=== PATIENT | female | born 1965 | race Caucasian/White ===

== ENCOUNTER 2018-06-19 20:02 | Outpatient (REF) | payer BC, SELFPAY ==
[2018-06-19 20:34] LABS: ALT 117 U/L (12-78); AST 69 U/L (15-37); Albumin 3.8 g/dL (3.4-5.0); Alkaline Phosphatase 87 U/L (46-116); Anion Gap 7.4 mmol/L (3-11); BUN 14 mg/dL (7-18); Bilirubin, Total 0.3 mg/dL (0.2-1.0); CO2 30.6 mmol/L (21.0-32.0); CREATININE 0.88 mg/dL (0.55-1.02); Calcium 9.8 mg/dL (8.5-10.1); Chloride 103 mmol/L (98-107); Cholesterol 232 mg/dL (50-200); Glucose 111 mg/dL (70-100); HDL Cholesterol 46 mg/dL (40-60); LDL CHOLESTEROL 152 mg/dL (<100); Potassium 3.9 mmol/L (3.5-5.1); Sodium 141 mmol/L (136-145); Total Protein 7.8 g/dL (6.4-8.2); Triglyceride 231 mg/dL (30-150)
== END 2018-06-19 20:22 ==
LOC: NCHCN 20:02
PROVIDERS: PCP Internal Medicine; Visit Provider Nurse Practitioner Family
DX: N95.1 Menopausal and female climacteric states (principal); N39.3 Stress incontinence (female) (male); J45.20 Mild intermittent asthma, uncomplicated; I10 Essential (primary) hypertension; R68.84 Jaw pain; K30 Functional dyspepsia
CPT/HCPCS: 80053; 80061; 83721

== ENCOUNTER 2018-08-13 10:15 | Outpatient (REF) | payer BC, SELFPAY ==
[2018-08-13 14:15] LABS: ALT 70 U/L (12-78); AST 44 U/L (15-37); Albumin 4.2 g/dL (3.4-5.0); Alkaline Phosphatase 94 U/L (46-116); Bilirubin, Direct 0.14 mg/dL (0.00-0.20); Bilirubin, Total 0.6 mg/dL (0.2-1.0); Glucose 101 mg/dL (70-100); Total Protein 7.9 g/dL (6.4-8.2)
[2018-08-14 09:56] LABS: Hepatitis A Antibody IgM Negative (NEGAT); Hepatitis B Core Antibody Negative (NEGAT); Hepatitis B surface Ag Negative (NEGAT); Hepatitis C Ab w Rflx HCV PCR Negative (NEGAT)
== END 2018-08-13 10:35 ==
LOC: NCHCN 10:15
PROVIDERS: PCP Internal Medicine; Referring Provider Nurse Practitioner Family; Visit Provider Nurse Practitioner Family
DX: I10 Essential (primary) hypertension (principal); E66.3 Overweight; Z00.00 Encounter for general adult medical examination without abnormal findings
CPT/HCPCS: 80076; 82947; 86704; 86709; 86803; 87340

== ENCOUNTER 2018-12-11 11:22 | Outpatient (REF) | payer BC, SELFPAY ==
[2018-12-11 21:03] LABS: ALT 72 U/L (12-78); AST 54 U/L (15-37); Albumin 4.1 g/dL (3.4-5.0); Alkaline Phosphatase 96 U/L (46-116); Anion Gap 12.4 mmol/L (3-11); BUN 16 mg/dL (7-18); Bilirubin, Total 0.5 mg/dL (0.2-1.0); CO2 25.6 mmol/L (21.0-32.0); CREATININE 0.77 mg/dL (0.55-1.02); Calcium 9.3 mg/dL (8.5-10.1); Chloride 101 mmol/L (98-107); Glucose 106 mg/dL (70-100); Potassium 4.1 mmol/L (3.5-5.1); Sodium 139 mmol/L (136-145)
== END 2018-12-11 11:42 ==
LOC: NCHCN 11:22
PROVIDERS: PCP Internal Medicine; Visit Provider Nurse Practitioner Family
DX: R74.0 Nonspecific elevation of levels of transaminase and lactic acid dehydrogenase [LDH] (principal); N95.1 Menopausal and female climacteric states; N39.3 Stress incontinence (female) (male); K30 Functional dyspepsia; I10 Essential (primary) hypertension; F41.9 Anxiety disorder, unspecified; E66.3 Overweight
CPT/HCPCS: 80053

== ENCOUNTER 2019-03-27 08:55 | Outpatient (REF) | payer BC, SELFPAY ==
[2019-03-27 12:51] LABS: ALT 27 U/L (14-59); AST 16 U/L (15-37); Albumin 4.1 g/dL (3.4-5.0); Alkaline Phosphatase 102 U/L (46-116); Bilirubin, Direct 0.11 mg/dL (0.00-0.20); Bilirubin, Total 0.5 mg/dL (0.2-1.0); Total Protein 7.7 g/dL (6.4-8.2)
== END 2019-03-27 09:15 ==
LOC: NCHCN 08:55
PROVIDERS: PCP Internal Medicine; Visit Provider Nurse Practitioner Family
DX: R74.0 Nonspecific elevation of levels of transaminase and lactic acid dehydrogenase [LDH] (principal)
CPT/HCPCS: 80076

== ENCOUNTER 2020-11-20 12:30 | Outpatient (REF) | payer BC, SELFPAY ==
--- NOTE | 2020-11-20 11:30 | PAPFT_PTH ---
PATIENT: Letitia Lee LOC: [facility]#:[id number] AGE/SX: 55/F ROOM: RE11/20/[address]: Mely Toure : 1965 BED: DIS: 11/20/2020 SPEC #: [id number] RECD: 11/20/20 16:38 STATUS: ZIAJennifer REMatthew #: [id number] AYAN: 11/20/20 11:[address]: Mely Toure DEPT: [facility] Cytology RECD BY: Paige Carlson ENTERED: 11/20/20 16:38 SP TYPE: PAPFT ERICK DR: Quinton Carl Tissues: 1 - CX/ENDOCX FOR PAP SMEARS Procedures: PAP THIN PREP/UVM Screening HPV DNA PROBE Comments: [id number]
[2020-11-20 21:12] LABS: ALT 31 U/L (14-59); AST 21 U/L (15-37); Albumin 4.4 g/dL (3.4-5.0); Alkaline Phosphatase 92 U/L (46-116); Bilirubin, Total 0.2 mg/dL (0.2-1.0); Calculated LDL 131 mg/dL (<100); Cholesterol 201 mg/dL (<200); HDL Cholesterol 39 mg/dL (40-60); Total Protein 7.9 g/dL (6.4-8.2); Triglyceride 155 mg/dL (<150)
[2020-11-20 21:25] LABS: Bilirubin, Direct 0.1 mg/dL (0.0-0.2)
== END 2020-11-20 12:31 | disposition home or self-care (01) ==
LOC: NCHCN 12:30
PROVIDERS: PCP Internal Medicine; Visit Provider Nurse Practitioner Family
DX: E78.5 Hyperlipidemia, unspecified (principal); Z00.00 Encounter for general adult medical examination without abnormal findings; R74.01 Elevation of levels of liver transaminase levels; E66.3 Overweight; Z12.4 Encounter for screening for malignant neoplasm of cervix; Z01.419 Encounter for gynecological examination (general) (routine) without abnormal findings; Z11.51 Encounter for screening for human papillomavirus (HPV)
CPT/HCPCS: 80061; 80076; 88142; 87624

== ENCOUNTER 2021-03-24 20:32 | Outpatient (REF) | payer BC, SELFPAY ==
[2021-03-24 21:22] LABS: Abs Immature Grans 0.01 10^3/uL (0.0-0.06); Absolute Basophil Count 0.02 10^3/uL (0.0-0.2); Absolute Eosinophil Count 0.05 10^3/uL (0.0-0.7); Absolute Lymphocyte Count 1.73 10^3/uL (1.2-3.4); Absolute Monocyte Count 0.57 10^3/uL (0.1-0.8); Absolute Neutrophil Count 3.25 10^3/uL (1.2-6.7); Basophils % 0.4; Eosinophils % 0.9; HCT 41.5 % (36.0-46.0); HGB 13.6 g/dL (11.2-15.7); Immature Grans % 0.2; Lymphocytes % 30.7; MCH 29.9 pg (27.0-33.0); MCHC 32.8 % (32.0-36.0); MCV 91.2 fL (80-95); MPV 11.2 fL (8.0-11.0); Monocytes % 10.1; Neutrophils % 57.7; Nucleated RBC 0 %; Platelet Count 282 10^3/uL (130-400); RBC 4.55 10^6/uL (3.93-5.22); RDW 12.9 % (11.7-14.6); RDW-SD 43.5 fL; WBC 5.63 10^3/uL (4.4-10.8)
[2021-03-24 21:24] LABS: ESR 18 mm/hr (0-30)
[2021-03-24 21:27] LABS: ALT 30 U/L (14-59); AST 18 U/L (15-37); Albumin 4.4 g/dL (3.4-5.0); Alkaline Phosphatase 84 U/L (46-116); Anion Gap 8.9 mmol/L (3-11); BUN 17 mg/dL (7-18); Bilirubin, Total 0.2 mg/dL (0.2-1.0); CO2 30.1 mmol/L (21.0-32.0); CREATININE 0.8 mg/dL (0.55-1.02); Calcium 9.3 mg/dL (8.5-10.1); Chloride 103 mmol/L (98-107); Glucose 106 mg/dL (74-106); Potassium 3.9 mmol/L (3.5-5.1); Sodium 142 mmol/L (136-145); Total Protein 7.8 g/dL (6.4-8.2)
[2021-03-29 10:58] LABS: IgA 244 mg/dL (85-499); Interpretation (See Note); Tissue Transglutaminase IgA <1.2 U/mL (<4.0)
== END 2021-03-24 20:33 | disposition home or self-care (01) ==
LOC: NCHCN 20:32
PROVIDERS: PCP Internal Medicine; Visit Provider Family Medicine
DX: K30 Functional dyspepsia (principal)
CPT/HCPCS: 80053; 82784; 83516; 85652; 85025

== ENCOUNTER 2021-10-15 14:01 | Outpatient (CLI) | payer BC, SELFPAY ==
[2021-10-15 15:12] LABS: D-Dimer 313 ng/mlFEU (<500)
== END 2021-10-15 14:02 | disposition home or self-care (01) ==
LOC: LBO 14:02
PROVIDERS: PCP Internal Medicine; Visit Provider Nurse Practitioner Family
DX: R60.0 Localized edema (principal)
CPT/HCPCS: 36415; 85379

== ENCOUNTER 2021-10-29 15:38 | Outpatient (REF) | payer BC, SELFPAY ==
[2021-10-29 16:18] LABS: Anion Gap 7.1 mmol/L (3-11); BUN 13 mg/dL (7-18); CO2 29.9 mmol/L (21.0-32.0); CREATININE 0.8 mg/dL (0.55-1.02); Calcium 9.4 mg/dL (8.5-10.1); Chloride 101 mmol/L (98-107); Glucose 109 mg/dL (74-106); Potassium 4.1 mmol/L (3.5-5.1); Sodium 138 mmol/L (136-145)
== END 2021-10-29 15:39 | disposition home or self-care (01) ==
LOC: NCHCN 15:38
PROVIDERS: PCP Internal Medicine; Visit Provider Nurse Practitioner Family
DX: E78.5 Hyperlipidemia, unspecified (principal); E66.3 Overweight; Z86.79 Personal history of other diseases of the circulatory system
CPT/HCPCS: 80048

== ENCOUNTER 2022-02-01 15:56 | Outpatient (REF) | payer BC, SELFPAY ==
[2022-02-01 19:30] LABS: Abs Immature Grans 0.02 10^3/uL (0.0-0.06); Absolute Basophil Count 0.02 10^3/uL (0.0-0.2); Absolute Eosinophil Count 0.02 10^3/uL (0.0-0.7); Absolute Lymphocyte Count 1.51 10^3/uL (1.2-3.4); Absolute Monocyte Count 0.36 10^3/uL (0.1-0.8); Absolute Neutrophil Count 4.58 10^3/uL (1.2-6.7); Basophils % 0.3; Eosinophils % 0.3; HCT 43.1 % (36.0-46.0); HGB 14.5 g/dL (11.2-15.7); Immature Grans % 0.3; Lymphocytes % 23.2; MCH 29.8 pg (27.0-33.0); MCHC 33.6 % (32.0-36.0); MCV 89 fL (80-95); MPV 11.2 fL (8.0-11.0); Monocytes % 5.5; Neutrophils % 70.4; Platelet Count 306 10^3/uL (130-400); RBC 4.87 10^6/uL (3.93-5.22); RDW-SD 42.5 fL; WBC 6.51 10^3/uL (4.4-10.8)
[2022-02-01 20:06] LABS: Ferritin 311 ng/mL (8-252); TSH (W/Ref FT4) 0.86 uIU/mL (0.36-3.74); Vitamin B12 521 pg/mL (193-986)
[2022-02-01 21:29] LABS: Iron 65 ug/dL (50-170); Total Iron Binding Capacity 346 ug/dL (250-450); Transferrin Sat 19 % (15-50)
== END 2022-02-01 15:57 | disposition home or self-care (01) ==
LOC: NCHCN 15:56
PROVIDERS: PCP Internal Medicine; Visit Provider Nurse Practitioner Family
DX: Z00.00 Encounter for general adult medical examination without abnormal findings (principal); R53.83 Other fatigue; K30 Functional dyspepsia; E66.3 Overweight; E78.5 Hyperlipidemia, unspecified
CPT/HCPCS: 82607; 82728; 83540; 83550; 84443; 85025

== ENCOUNTER 2022-12-01 17:27 | Outpatient (REF) | payer BC, SELFPAY ==
[2022-12-01 14:58] LABS: Hemoglobin A1C 5.6 % (<5.7)
[2022-12-01 15:12] LABS: ALT 29 U/L (14-59); AST 18 U/L (15-37); Albumin 4.1 g/dL (3.4-5.0); Alkaline Phosphatase 93 U/L (46-116); BUN 12 mg/dL (7-18); Bilirubin, Total 0.6 mg/dL (0.2-1.0); CREATININE 0.8 mg/dL (0.55-1.02); Calcium 9.1 mg/dL (8.5-10.1); Calculated LDL 151 mg/dL (<100); Chloride 105 mmol/L (98-107); Cholesterol 211 mg/dL (<200); Estimated GFR 86.96 (mL/min/1.73m2); Ferritin 373 ng/mL (8-252); Glucose 96 mg/dL (74-106); HDL Cholesterol 45 mg/dL (40-60); Potassium 4.3 mmol/L (3.5-5.1); Sodium 141 mmol/L (136-145); Total Protein 7.5 g/dL (6.4-8.2); Triglyceride 78 mg/dL (<150)
== END 2022-12-01 17:28 | disposition home or self-care (01) ==
LOC: NCHCN 17:27
PROVIDERS: PCP Internal Medicine; Visit Provider Nurse Practitioner Family
DX: R78.89 Finding of other specified substances, not normally found in blood (principal); E78.5 Hyperlipidemia, unspecified; E66.3 Overweight
CPT/HCPCS: 80053; 80061; 82728; 83036

== ENCOUNTER 2023-12-04 11:23 | Outpatient (REF) | payer BC, SELFPAY ==
--- OUTSIDE RECORDS SUMMARY | 2023-12-04 11:30 | XMS_ITS | Clinical Summary ---
Author Organization [facility] Address [address] [place] [address] Care Team Providers Care Cutter And Paster Press Clippings Name Role Phone Unknown, Provider Primary Care Provider Social History Tobacco Use Types Packs/Day Years Used Date Smoking Tobacco: Never Assessed Sex and Gender Information Value Date Recorded Sex Assigned at Not on file Gender Identity Not on file Sexual Orientation Not on file Plan of Treatment Health Maintenance Due Date Last Done Comments Hepatitis C Screen 1965 Hepatitis B Vaccine (1 of 3 - 19+ 3-dose series) 05/20 COVID-19 Vaccine (2022- season) 2022 Care Teams Cutter And Paster Press Clippings Relationship Specialty Start Date End Date Unknown, Provider, PCP - General 03/24/15
--- OUTSIDE RECORDS SUMMARY | 2023-12-04 11:30 | XMS_ITS | Clinical Summary ---
Author Organization [facility] Address [facility] [place] [address] Care Team Providers Care Special Investigator Name Role Phone Mely Touer APRN Primary Care Provider +1 [phone] Allergies No known active allergies Medications Medication Sig Dispensed Refills Start Date End Date Status escitalopram (LEXAPRO) 10 mg tablet 10mg, PO, Once daily 07/07/2004 Active propranoloL (Inderal) 10 mg Tablet Take 10 mg by mouth 2 times daily. 03/29/2022 Active venlafaxine XR (Effexor-XR) 37.5 mg Capsule, Sust. Release 24 hr Take 37.5 mg by mouth daily. 03/18/2022 Active Social History Tobacco Use Types Packs/Day Years Used Date Smoking Tobacco: Never Smokeless Tobacco: Never Tobacco Cessation:Counseling Given: Not Answered Sex and Gender Information Value Date Recorded Sex Assigned at Not on file Gender Identity Not on file Sexual Orientation Not on file Plan of Treatment Health Maintenance Due Date Last Done Comments CT Colonography 1965 Colonoscopy 1965 Colorectal Cancer Screening 1965 FIT DNA 1965 FIT 1965 Sigmoidoscopy (10 year) with FIT yearly 1965 Sigmoidoscopy 1965 HIV screen 1985 Hepatitis C Screening 1985 Hepatitis B vaccine (0-59 yrs) (1) 1986 Tdap adult 1986 Tetanus vaccine 1986 HPV test 1997 PAP Smear 1997 Breast Cancer Share Decision Needed 2007 Breast Cancer screening 2007 Zoster vaccine (1 of 2) 2017 Advance Directive 2022 Covid-19 Vaccine () 12/30/2022 Influenza (Flu) vaccine (1 o f 1 - Influenza standard series) 12/31/2023 Care Teams Special Investigator Relationship Specialty Start Date End Date Mely Toure APRN [address] [place] [address] PCP - General Family Medicine 05/17/21
--- OUTSIDE RECORDS SUMMARY | 2023-12-04 11:30 | XMS_ITS | Continuity of Care Document ---
Author Organization [facility] Address [address] [place] [address] Care Team Providers Care Bill Board Poster Name Role Phone MARYANN ENRIQUEZ APRN Primary Care Physician Encounter [facility]_[place] FIN NBR [id number] Date(s): 02/15/23 - 02/15/23 [facility] [address] [place] [address]- Encounter Diagnosis Palpitations(Final) - Other forms of dyspnea(Final) - Other specified abnormal findings of blood chemistry(Final) - Menopausal and female climacteric states(Final) - Discharge Disposition: Home or Self Care Attending Physician: MARYANN ENRIQUEZ APRN Admitting Physician: MARYANN ENRIQUEZ APRN Referring Physician: MARYANN ENRIQUEZ APRN Assessment and Plan Future Appointments Future Scheduled Tests Radiology* MG Mammo Screening Bilateral 03/20/23 Results Laboratory List Name Date Basic Metabolic Panel 02/15/23 D-Dimer 02/15/23 Ferritin 02/15/23 Magnesium Level 02/15/23 TSH w/ Rflx to Free T4 02/15/23 Most recent to oldest [Reference Range]: 1 BUN [8-26 mg/dL] 15 mg/dL (02/15/23 8:57 AM) Glucose Level [74-106 mg/dL] 68 mg/dL *LOW* (02/15/23 8:57 AM) Potassium Level [3.5-5.1 mmol/L] 4.3 mmo l/L (02/15/23 8:57 AM) Osmolality [275-295 mOsm/kg] 275 mOsm/kg (02/15/23 8:57 AM) Sodium Level [134-143 mmol/L] 138 mmol/L (02/15/23 8:57 AM) Calcium Level [8.9-10.3 mg/dL] 9.8 mg/dL (02/15/23 8:57 AM) Magnesium Level [1.8-2.5 mg/dL] 2.4 mg/d L (02/15/23 8:57 AM) Ferritin Level [11.0-307.0 ng/mL] 228.8 ng/mL (02/15/23 8:57 AM) CO2 [22-32 mmol/L] 28 mmol/L (02/15/23 8:57 AM) TSH [0.45-5.33 mcIntlUnit/mL] 0.90 mcInt lUnit/mL (02/15/23 8:57 AM) Chloride Level [98-111 mmol/L] 103 mmol/ L (02/15/23 8:57 AM) BUN/Creat Ratio [8.0-20.0] 22.7 *HI* (02/15/23 8:57 AM) Creatinine Level [0.44-1.00 mg/dL] 0.66 mg/dL (02/15/23 8:57 AM) Anion Gap [3.0-12.0] 7.0 (02/15/23 8:57 AM) D Dimer, (Quant.) [<=500 ng/mL] 229 ng/m L 1 (02/15/23 8:57 AM) eGFR CKD-EPI [>=60 mL/min/1.73 m2] 104 m L/min/1.73 m2 (02/15/23 8:57 AM) 1Interpretive Data: A normal D-dimer result (< or =500 ng/mL FEU) has a negative predicitive value of approximately 95% for the exclusion of acute embolism (PE) or deep vein thrombosis when there is low or moderate pretest PE probability. Patient Care team information Care Team Personnel Name: MARYANN ENRIQUEZ APRN Position: No Access Member Role: Primary Care Physician Address: Address: [address] [place] [id number] Care Team Related Persons Name: EMERALD OKEEFE Address: Home [address] [place] [id number] [facility]
--- OUTSIDE RECORDS SUMMARY | 2023-12-04 11:30 | XMS_ITS | Encounter Summary ---
Author Organization [facility] [place] [address] Care Team Providers Care Pilot Can Router Name Role Phone Mely Toure APRN Primary Care Provider [phone] [phone] Reason for Referral * Consultation (Routine) - Closed Specialty Diagnoses / Procedures Referred By Cornelio rogers Referred To Contact Dermatology Diagnoses Skin lesion of face Mely Toure APRN [address] [place] [address] [facility] Dermatology [address] [place] [address] Referral ID Status Reason Start Date Expiration Date V isits Requested Visits Authorized [id number] Closed Consult, Test & Treat PCP Updated and/or Approved 03/21/2022 03/21/2023 12 12 Encounter Details Date Type Department Care Team (Latest Contact Info) Description 03/21/2022 Transcribe Orders eDH Incoming Referrals [phone] Mely Toure APRN [address] [place] [address] Skin lesion of face Social History Tobacco Use Types Packs/Day Years Used Date Smoking Tobacco: Never Assessed Sex and Gender Information Value Date Recorded Sex Assigned at Not on file Gender Identity Not on file Sexual Orientation Not on file documented as of this encounter Plan of Treatment Scheduled Referrals Name Type Priority Associated Diagnoses Order Schedule Referral to Dermatology Outpatient Referral Routine Skin lesion of face Ordered: 03/21/2022 documented as of this encounter Visit Diagnoses Diagnosis Skin lesion of face Unspecified disorder of skin and subcutaneous tissue documented in this encounter Care Teams Pilot Can Router Relationship Specialty Start Date End Date Mely Toure APRN [address] [place] [address] PCP - General Family Medicine 05/17/21 documented as of this encounter
--- OUTSIDE RECORDS SUMMARY | 2023-12-04 11:30 | XMS_ITS | Continuity of Care Document ---
Author Organization [facility] Address [address] [place] [address] Care Team Providers Care Traffic Supervisor Name Role Phone MARYANN ENRIQUEZ APRN Primary Care Physician [place]counter [facility] FIN NBR [id number] Date(s): 03/20/23 - 03/20/23 [facility] [address] [place] [address]- [place] Encounter Diagnosis Encounter for screening mammogram for malignant neoplasm of breast(Final) - Discharge Disposition: Home or Self Care Attending Physician: MARYANN ENRIQUEZ APRN Admitting Physician: MARYANN ENRIQUEZ APRN Referring Physician: MARYANN ENRIQUEZ APRN Results Radiology Reports * Exam Date Time Procedure Performing Provider Status 03/20/23 9:27 AM MG Mammo Screening Bilateral Kasandra Bean; Ashok (Verified) Notes: (MG Mammo Screening Bilateral) Reason For Exam: SCREENING MG Mammo Screening Bilateral EXAM DESCRIPTION: MG Mammo Screening Bilateral 03/20/2023 INDICATION: SCREENING COMPARISON: 12/09/2021 and 04/20/2020 BREAST DENSITY: There are scattered areas of fibroglandular density. FINDINGS: MLO and CC views were performed with digital breast tomosynthesis. Images were reviewed using computer aided detection. No asymmetry, architectural distortion or suspicious grouping of calcifications to suggest malignancy in either breast. ASSESSMENT: No mammographic evidence of malignancy. Negative. BI-RADS category 1. RECOMMENDATION: Screening mammography in 1 year JOB #: [id number] Final Signed by: Talha Gregorio MD Signed (Electronic Signature): 03/20/2023 9:56 am Patient Care team information Care Team Personnel Name: MINA LOCKER ROOM MANAGER, MARYANN Position: No Access Member Role: Primary Care Physician Address: Address: [address] [place] [address] Care Team Related Persons Name: EMERALD OKEEFE Address: Home [address] [place] [phone] [facility]
--- OUTSIDE RECORDS SUMMARY | 2023-12-04 11:30 | XMS_ITS | Encounter Summary ---
Author Organization [facility] [place] [address] Care Team Providers Care Cardiology Technician Name Role Phone Mely Toure APRN Primary Care Provider [phone] [phone] Encounter Details Date Type Department Care Team (Late st Contact Info) Description 10/27/2021 Interpretation Only [address] [id number] Tierra Daley, DPM [address] [place] [address] Social History Tobacco Use Types Packs/Day Years Used Date Smoking Tobacco: Never Assessed Sex and Gender Information Value Date Recorded Sex Assigned at Not on file Gender Identity Not on file Sexual Orientation Not on file documented as of this encounter Plan of Treatment Not on file documented as of this encounter Procedures Procedure Name Priority Date/Time Associated Diagnosis Comments XR ANKLE MIN 3 VIEWS BILAT Routine 10/27/2021 2:59 PM EDT documented in this encounter Results * XR Ankle Min 3 views Bilat (Generic) (10/27/2021 2:59 PM EDT) PT CLASS O RAD ADMITDTTM RAD PT RAD MD INFO [id number]^W MICKEY^TIERRA^ P RAD EXAM DESC XRANKMVB^XR RIGHT ANKLE COMPLETE^RIS RAD Anatomical Region Laterality Modality Ankle Bilateral Radiographic Madhavi ging Impressions 10/27/2021 3:04 PM EDT Normal appearance of the ankle joints without fracture or malalignment. No effusion is seen. Inferior calcaneal spurring is noted bilaterally, slightly more pronounced on the left. Thank you for letting us participate in the care of this patient. ??If you are a health care provider and have any questions regarding this report, please contact the number below. ??For patients who have questions please contact the health pet care assistant that requested your imaging first. ? Narrative 10/27/2021 3:04 PM EDT EXAMINATION: XR LEFT ANKLE COMPLETE, XR RIGHT ANKLE COMPLETE CLINICAL HISTORY: Pain in left ankle and joints of left foot TECHNIQUE: 3 views of each ankle COMPARISON: None FINDINGS: See impression. Procedure Note Klaus Perera MD - 10/27/2021 EXAMINATION: XR LEFT ANKLE COMPLETE, XR RIGHT ANKLE COMPLETE CLINICAL HISTORY: Pain in left ankle and joints of left foot TECHNIQUE: 3 views of each ankle COMPARISON: None FINDINGS: See impression. IMPRESSION Normal appearance of the ankle joints without fracture or malalignment.No effusion is seen. Inferior calcaneal spurring is noted bilaterally,slightly more pronounced on the left. Thank you for letting us participate in the care of this patient. If youare a health care provider and have any questions regarding this report,please contact the number below. For patients who have questions please contactthe health pet care assistant that requested your imaging first. Tierra Daley DPM IMG DX ORDERABLES documented in this encounter Visit Diagnoses Not on filedocumented in this encounter Care Teams Cardiology Technician Relationship Specialty Start Date End Date Mely Toure APRN [address] [place] [address] PCP - General Family Medicine 05/17/21 documented as of this encounter
--- OUTSIDE RECORDS SUMMARY | 2023-12-04 11:30 | XMS_ITS | Encounter Summary ---
Author Organization [facility] [place] [address] Care Team Providers Care Pulp Grinder And Blender Name Role Phone Mely Toure APRN Primary Care Provider [phone] [phone] Encounter Details Date Type Department Care Team (Late st Contact Info) Description 10/27/2021 Interpretation Only [address] [phone] Tierra Daley, DPM [address] [place] [address] Social History Tobacco Use Types Packs/Day Years [...] Diagnosis Comments XR ANKLE MIN 3 VIEWS LEFT Routine 10/27/2021 2:58 PM EDT documented in this encounter Results * XR Ankle Min 3 views Left (Generic) (10/27/2021 2:58 PM EDT) PT CLASS O RAD ADMITDTTM RAD PT RAD MD INFO [id number]^W MICKEY^TIERRA^ P RAD EXAM DESC XRANKMVL^XR LEFT ANKLE COMPLETE^RIS RAD Anatomical Region Laterality Modality Ankle Left Radiographic Madhavi ging Impressions 10/27/2021 3:04 PM [...] who have questions please contact the health career services manager that requested your imaging first. ? Narrative [...] patients who have questions please contactthe health career services manager that requested your imaging first. Tierra Daley DPIta IMG DX ORDERABLES documented in this encounter Visit Diagnoses Not on filedocumented in this encounter Care Teams Pulp Grinder And Blender Relationship Specialty Start Date End Date Mely Toure, AARON [address] [place] [address] PCP - General Family Medicine 05/17/21 documented as of this encounter
--- OUTSIDE RECORDS SUMMARY | 2023-12-04 11:30 | XMS_ITS | Encounter Summary ---
Author Organization [facility] Address [address] [place] [address] Care Team Providers Care Lead Warehouse Associate Name Role Phone Unknown, Provider Primary Care Provider Encounter Details Date Type Department Care Team (Late st Contact Info) Description 03/25/2021 Lab Requisition [facility] Pathology & Laboratory Medicine - [facility] [address] [place] [address] Outr Resulting Lab, Provider Social History Tobacco Use Types Packs/Day Years Used Date Smoking Tobacco: Never Assessed Sex and Gender Information Value Date Recorded Sex Assigned at Not on file Gender Identity Not on file Sexual Orientation Not on file documented as of this encounter Plan of Treatment Not on file documented as of this encounter Procedures Procedure Name Priority Date/Time Associated Diagnosis Comments CELIAC DISEASE PANEL Routine 03/24/2021 14:55 EST documented in this encounter Results * CELIAC DISEASE PANEL (03/24/2021 14:55 EST) Tissue Transglutaminase Antibody IGA <1.2 <4.0 U/mL 03/29/2021 10:[address] [facility] Comment: A negative result may be due to IgA deficiency and does not rule out celiac disease. ? Negative: ??<4.0 U/mL ? Weak Positive: ??4.0 - 10.0 U/mL ? Positive: ??>10.0 U/mL Results were obtained with the [employer] Lite R h-tTG IgA CHING assay on the [employer] DSX. IgA 244 85 - 499 mg/dL 03/29/2021 10:[address] [facility] Celiac Disease Interpretation Negative Serology. Celiac disease unlikely. Approximately 10% of patients with celiac disease are seronegative. Patients who are already adhering to a gluten-free diet may also be seronegative. If celiac disease is highly clinically suspected, referral to gastroenterology for additional evaluation is recommended. 03/29/2021 10:[address] [facility] Blood VENOUS BLOOD / Unknown 03/24/2021 14:55 EST 03/26/2021 15:53 EST Provider Outr Resulting Lab IMMUNOLOGY A ND SEROLOGY ORDERABLES [facility] [address] [place] [address] documented in this encounter Visit Diagnoses Not on filedocumented in this encounter Care Teams Lead Warehouse Associate Relationship Specialty Start Date End Date Unknown, Provider, PCP - General 03/24/15 documented as of this encounter
--- OUTSIDE RECORDS SUMMARY | 2023-12-04 11:30 | XMS_ITS | Continuity of Care Document ---
Author Name [facility] Organization [facility] Care Team Providers Care Oracle Sql Developer Name Role Phone [facility] Unavailable Unavailable Social History Combined list of available smoking, tobacco, and other social history from Department of Defense and Veterans Affairs facilities. Social History Type Response Date Comment Sourc e This section is an empty social history section. [facility]
--- OUTSIDE RECORDS SUMMARY | 2023-12-04 11:30 | XMS_ITS | Referral Summary ---
Author Organization [facility] Address [address] [place] [address] Care Team Providers Care Divisional Merchandising Manager Name Role Phone Unknown, Provider Primary Care Provider Social History Tobacco Use Types Packs/Day Years Used Date Smoking Tobacco: Never Assessed Sex and Gender Information Value Date Recorded Sex Assigned at Not on file Gender Identity Not on file Sexual Orientation Not on file Plan of Treatment Not on file Care Teams Divisional Merchandising Manager Relationship Specialty Start Date End Date Unknown, Provider, PCP - General 03/24/15
--- OUTSIDE RECORDS SUMMARY | 2023-12-04 11:30 | XMS_ITS | Encounter Summary ---
[place] [address] Care Team Providers Care Channel Opener Name Role Phone Mely Toure APRN Primary Care Provider [phone] [phone] Encounter Details Date Type Department Care Team (Latest Contact Info) Description 04/14/2022 Travel Social History Tobacco Use Types Packs/Day Years Used Date Smoking Tobacco: Never Smokeless Tobacco: Never Sex and Gender Information Value Date Recorded Sex Assigned at Not on file Gender Identity Not on file Sexual Orientation Not on file documented as of this encounter Plan of Treatment Not on file documented as of this encounter Visit Diagnoses Not on filedocumented in this encounter Care Teams Channel Opener Relationship Specialty Start Date End Date Mely Toure APRN [address] [place] [address] PCP - General Family Medicine 05/17/21 documented as of this encounter
--- OUTSIDE RECORDS SUMMARY | 2023-12-04 11:30 | XMS_ITS | Encounter Summary ---
Author Organization [facility] Address [facility] [place] [address] Care Team Providers Care Senior Net C Developer Name Role Phone Mely Toure APRN Primary Care Provider [phone] [phone] Reason for Visit * Consultation (Routine) - Closed Specialty Diagnoses / Procedures Referred By Cornelio rogers Referred To Contact Dermatology Diagnoses Skin lesion of face Mely Toure APRN [address] [place] [address] [facility] Dermatology [address] [place] [address] Referral ID Status Reason Start Date Expiration Date V isits Requested Visits Authorized [id number] Closed Consult, Test & Treat PCP Updated and/or Approved 03/21/2022 03/21/2023 12 12 Encounter Details Date Type Department Care Team (Late st Contact Info) Description 04/14/2022 10:45 AM EST Office Visit Dermatology at [facility] [address] [place] [id number] Jenn Rogers MD [facility] [place] [address] [place] [address] Seborrheic keratosis, inflamed Social History Tobacco Use Types Packs/Day Years Used Date Smoking Tobacco: Never Smokeless Tobacco: Never Tobacco Cessation:Counseling Given: Not Answered Sex and Gender Information Value Date Recorded Sex Assigned at Not on file Gender Identity Not on file Sexual Orientation Not on file documented as of this encounter Progress Notes * Jenn Rogers MD - 04/14/2022 10:45 AM EST Images from the original note were not included. DEPARTMENT OF DERMATOLOGY Medical Dermatology Clinic Provider: Jenn Rogers MD Patient's preferred name Letitia Preferred contact method for results [x]Phone []myD-H []Letter Detailed phone message OK? Yes Are there any other people with whom we may discuss your care? No Past Medical History Date, location, treatment Melanoma No Dysplastic nevi No SCC No BCC No AKs No UV Exposure & Protection + history of blistering sunburn Sun Protection: SPF 75 Family History Details Melanoma No NMSC No Other relevant family history No Social History Occupation: teacher Hobbies: Other: Pre-Procedure Screening Details Allergy to lidocaine, epinephrine, Dermabond, chlorhexidine, or adhesives No Bleeding disorder or blood thinners No Pacemaker, defibrillator, deep brain stimulator, cochlear implant No History of Present Illness: Letitia Lee is a 56 y.o. Patient is referred to the clinic at the request of Mely Toure for the following: -lesion on left cheek. Present for a couple of years. Asymptomatic. No previous treatment Review of Systems: General: Feeling well. Skin: No other skin concerns. Medications: Reviewed in eD-H Allergies: Reviewed in eD-H Skin Examination: Focused skin examination of the left cheek was normal with the exception of the findings below. Assessment/Plan # Inflamed seborrheic keratosis - stuck-on brown/hall waxy papule with erythema located on the leftcheek - Reassured of the benign nature of these lesions - Given irritated nature, joint decision to proceed with treatment with LN2 today - Procedure: Destruction with Liquid Nitrogen Cryotherapy Number of lesions - 1 The patient's verbal consent for liquid nitrogen was obtained. Risks and benefits were explained. The possible need for additional liquid nitrogen was reviewed. Lesion(s) were treated with LN2 [id number] freeze-thaw cycle. The patient tolerated the procedure well. Wound care was reviewed. Other: ??? N/A RTC: PRN []Note routed to secretary to board of commissioners []Recall placed in scheduling system []Appointment scheduled at checkout Scribe attestation: Ina Small RN has performed the documentation for this encounter in the presence of and acting as a scribe for Jenn Rogers MD. I performed the above scribed service and agree with the accuracy of the documentation in this encounter. Reviewed and signed by: Jenn Rogers MD Dermatology [facility] documented in this encounter Plan of Treatment Not on file documented as of this encounter Visit Diagnoses Diagnosis Seborrheic keratosis, inflamed Inflamed seborrheic keratosis documented in this encounter Care Teams Senior Net C Developer Relationship Specialty Start Date End Date Mely Toure APRN [address] [place] [address] PCP - General Family Medicine 05/17/21 documented as of this encounter
--- OUTSIDE RECORDS SUMMARY | 2023-12-04 11:31 | XMS_ITS | Encounter Summary ---
Author Organization [facility] Address [address] [place] [address] Care Team Providers Care Care Giver Name Role Phone Unavailable Primary Care Provider Unavailabl e Encounter Details Date Type Department Care Team (Late st Contact Info) Description 10/30/2013 Results Only [facility] Laboratory Services - [facility] ([facility]) [address] [place] [address] [phone] Magnus Linares FNP [address] [place], [place] [phone] Social History Tobacco Use Types Packs/Day Years Used Date Smoking Tobacco: Never Assessed Sex and Gender Information Value Date Recorded Sex Assigned at Not on file Gender Identity Not on file Sexual Orientation Not on file documented as of this encounter Plan of Treatment Not on file documented as of this encounter Procedures Procedure Name Priority Date/Time Associated Diagnosis Comments PAP TEST- RESULT ONLY Routine 10/30/2013 0:00 EDT documented in this encounter Results * PAP TEST- RESULT ONLY (10/30/2013 0:00 EDT) Pathology Report: CYTOPATHOLOGY REPORT Reports generated via electronic interface contain original data; however they are lacking the format of the original report. Caution should be taken when reading/interpreti ng unformatted reports. Name: ? LETITIA LEE ? Accession #: ? [id number] : ? 1965 (Age: 48) ??F ?Collect Date: ? 10/30/2013 Location: ? [facility] ? Receive Date: ? 11/04/2013 Provider: ?MAGNUS LINARES CAUL FAT PULLER Copy to: ? Specimen/Source: ?Pap Test, Cervix/Endocervix, ThinPrep Imaging System with manual evaluation Last Menstrual Period: ? 67 ? SPECIMEN ADEQUACY ? Satisfactory for Evaluation - transformation zone component present GENERAL CATEGORIZATION ? Negative for Intraepithelial Lesion or Malignancy ? Document reviewed and electronically signed by: ? Laila Aquino, CT(ASCP) ? Report Date: ??11/08/2013 13:58 End of Report [facility] 10/30/2013 11/04/2013 Magnus Linares CAUL FAT PULLER PATHOLOGY ORDERABLES [facility] [address] [place] [address] documented in this encounter Visit Diagnoses Not on filedocumented in this encounter
--- OUTSIDE RECORDS SUMMARY | 2023-12-04 11:31 | XMS_ITS | Encounter Summary ---
Author Organization [facility] Address [address] [place] [address] Care Team Providers Care Turf And Grounds Supervisor Name Role Phone Unavailable Primary Care Provider Unavailabl e Encounter Details Date Type Department Care Team (Late st Contact Info) Description 11/05/2007 Before PRISM Converted Visit (Map[facility]) [facility] conversion [address] [place] [address] Magnus Linares FNP [address] [place], [place] [address] Social History Tobacco Use Types Packs/Day Years Used Date Smoking Tobacco: Never Assessed Sex and Gender Information Value Date Recorded Sex Assigned at Not on file Gender Identity Not on file Sexual Orientation Not on file documented as of this encounter Plan of Treatment Not on file documented as of this encounter Procedures Procedure Name Priority Date/Time Associated Diagnosis Comments CYTOPATHOLOGY Routine 11/05/2007 0:00 EDT documented in this encounter Results * CYTOPATHOLOGY (11/05/2007 0:00 EDT) Pathology Report: CYTOPATHOLOGY REPORT ? Reports generated via electronic interface contain original data; ? however they are lacking the format of the original report. ? Caution should be taken when reading/interpreti ng unformatted reports. ? Name: ? LETITIA LEE ? Accession #: ? [id number] ? : ? 1965 (Age: 42) ??F ?Collect Date: ? 11/05/2007 ? Location: ? [facility] ? Receive Date: ? 11/06/2007 ? Provider: ?MAGNUS PRICE ? Copy to: ? Specimen/Source: ?ThinPrep Pap Test, Cervix/Endocervix, processed on Cytyc ThinPrep Imaging System, with manual evaluation ? Last Menstrual Period: ? 6/30/08 ? Other: ? HPVA - HPV testing requested if ASC-US on the current ThinPrep Pap test. ? SPECIMEN ADEQUACY ? Satisfactory for Evaluation ? - transformation zone component present ? GENERAL CATEGORIZATION ? Negative for Intraepithelial Lesion or Malignancy ? Document reviewed and electronically signed by: ? Donya Carlisle, CT(ASCP) ? Report Date: ??11/13/2007 11:03 ? End of Report ? [facility] 11/05/2007 11/06/2007 Magnus Linares TURNAROUND ENGINEER PATHOLOGY ORDERABLES Performing Organization Address City/State/[facility] Co de Phone Number [facility] CORAD[facility] [address] [place] [address] documented in this encounter Visit Diagnoses Not on filedocumented in this encounter
--- OUTSIDE RECORDS SUMMARY | 2023-12-04 11:31 | XMS_ITS | Encounter Summary ---
Author Organization [facility] Address [address] [place] [address] Care Team Providers Care Analytics Specialist Name Role Phone Unavailable Primary Care Provider Unavailabl e Encounter Details Date Type Department Care Team (Late st Contact Info) Description 03/02/2006 Results Only [facility] conversion [address] [place] [address] Surinder Mckeon PA-C [address] [place] [phone] Social History Tobacco Use Types Packs/Day Years Used Date Smoking Tobacco: Never Assessed Sex and Gender Information Value Date Recorded Sex Assigned at Not on file Gender Identity Not on file Sexual Orientation Not on file documented as of this encounter Plan of Treatment Not on file documented as of this encounter Procedures Procedure Name Priority Date/Time Associated Diagnosis Comments CYTOPATHOLOGY Routine 03/02/2006 0:00 EST documented in this encounter Results * CYTOPATHOLOGY (03/02/2006 0:00 EST) Pathology Report: CYTOPATHOLOGY REPORT Reports generated via electronic interface contain original data; however they are lacking the format of the original report. Caution should be taken when reading/interpreti ng unformatted reports. Name: ? LETITIA LEE ? Accession #: ? [id number] : ? 1965 (Age: 40) ??F ?Collect Date: ? 03/02/2006 Location: ? [facility] ? Receive Date: ? 03/07/2006 Provider: ?SURINDER BRADSHAW Copy to: ? Specimen/Source: ?ThinPrep Pap Test, Cervix/Endocervix, processed on EPIS ThinPrep Imaging System, with manual evaluation Last Menstrual Period: ? 02.15.06 Other: ? HPVA - HPV testing requested if ASC-US on the current ThinPrep Pap test. ? SPECIMEN ADEQUACY ? Satisfactory for Evaluation - transformation zone component present GENERAL CATEGORIZATION ? Negative for Intraepithelial Lesion or Malignancy ? Document reviewed and electronically signed by: ? Alda Owusu, SCT(ASCP) ? Report Date: ??03/14/2006 11:46 End of Report [facility] 03/02/2006 03/07/2006 Surinder Mckeon PA-C PATHOLOGY [facility] [address] [place] [address] documented in this encounter Visit Diagnoses Not on filedocumented in this encounter
--- OUTSIDE RECORDS SUMMARY | 2023-12-04 11:31 | XMS_ITS | Encounter Summary ---
Author Organization [facility] Address [address] [place] [address] Care Team Providers Care Otr Owner Operator Name Role Phone Unknown, Provider Primary Care Provider Encounter Details Date Type Department Care Team (Latest Contact Info) Description 11/23/2020 Lab Requisition [facility] Pathology & Laboratory Medicine - [facility] [address] [place], [place] [address] Mely Toure, FUNERAL PRE ARRANGEMENT SPECIALIST [address] [facility] [address] [place] [phone] Encounter for general adult medical examination without abnormal findings; Encounter for screening for malignant neoplasm of cervix; Encounter for gynecological examination (general) (routine) without abnormal findings Social History Tobacco Use Types Packs/Day Years Used Date Smoking Tobacco: Never Assessed Sex and Gender Information Value Date Recorded Sex Assigned at Not on file Gender Identity Not on file Sexual Orientation Not on file documented as of this encounter Plan of Treatment Not on file documented as of this encounter Procedures Procedure Name Priority Date/Time Associated Diagnosis Comments PAP TEST Today 11/20/2020 11:30 EDT Encounter for general adult medical examination without abnormal findings Encounter for screening for malignant neoplasm of cervix Encounter for gynecological examination (general) (routine) without abnormal findings HPV DNA DETECTION WITH GENOTYPING, PCR Today 11/20/2020 11:30 EDT Encounter for general adult medical examination without abnormal findings Encounter for screening for malignant neoplasm of cervix Encounter for gynecological examination (general) (routine) without abnormal findings documented in this encounter Results * HUMAN PAPILLOMAVIRUS (HPV) DETECTION-HIGH RISK TYPES (11/20/2020 11:30 EDT) HPV other High Risk types, PCR Negative Negative 12/02/2020 15:18 [facility] Comment:No E6 or E7 mRNA is detected from HPV types 16,18,31,33,35,39,45,51,52,56,58,59,66, and 68 by curb machine operator mediated amplification. Papanicolaou smear specimen (specimen) CERVIX UTERI STRUCTURE / Unknown 11/20/2020 11:30 EDT 12/01/2020 13:41 EDT Mely Toure FUNERAL PRE ARRANGEMENT SPECIALIST MICROBIOLOGY - GE NERAL ORDERABLES [facility] [address] [place] [address] * PAP TEST (11/20/2020 11:30 EDT) Specimens A. Cervix and/or Endocervix VAGINAL /CERVICAL/ENDOCER VICAL, ThinPrep Imaging System with Manual Evaluation 12/02/2020 15:18 [facility] Specimen Adequacy Satisfactory for Evaluation - transformation zone component present 12/02/2020 15:18 [facility] General Categorization Negative for intraepithelial lesion or malignancy 12/02/2020 15:18 [facility] Attestation . 12/02/2020 15:18 [facility] at 1518 Clinical History See below 12/03/19 15:18 [facility] HPV The result for the Human Papillomavirus (HPV) Detection-High Risk Types is Negative. No E6 or E7 mRNA is detected from HPV types 16,18,31,33,35,39 ,45,51,52,56,58,5 9,66, and 68 by curb machine operator mediated amplification.Tiffanie ting was performed on specimen [id number] and was resulted on 12/02/2020 1509 EDT by NOHEMI, LAB INSTRUMENT RESULTS IN 12/02/2020 15:18 [facility] Performing Lab [facility] 12/02/2020 15:18 EDT [facility] Scanned Images 12/02/2020 15:18 EDT [facility] Papanicolaou smear specimen (specimen) CERVIX UTERI STRUCTURE / Unknown 11/20/2020 11:30 EDT 11/23/2020 15:01 EDT Mely Toure FUNERAL PRE ARRANGEMENT SPECIALIST PATHOLOGY ORDERAB LES Performing Organization Address City/State/[facility] Co de Phone Number [facility] [address] [place] [address] documented in this encounter Visit Diagnoses Diagnosis Encounter for general adult medical examination without abnormal findings Unspecified general medical examination Encounter for screening for malignant neoplasm of cervix Screening for malignant neoplasm of the cervix Encounter for gynecological examination (general) (routine) without abnormal findings documented in this encounter Care Teams Otr Owner Operator Relationship Specialty Start Date End Date Unknown, Provider, PCP - General 03/24/15 documented as of this encounter
--- OUTSIDE RECORDS SUMMARY | 2023-12-04 11:31 | XMS_ITS | Encounter Summary ---
Author Organization [facility] Address [address] [place] [address] Care Team Providers Care Throw Out Clerk Name Role Phone Unavailable Primary Care Provider Unavailabl e Encounter Details Date Type Department Care Team (Late st Contact Info) Description 12/20/2004 Results Only [facility] [place] conversion [address] [place] [address]ata NP [address] [place], [place] [phone] Social History Tobacco Use Types Packs/Day Years Used Date Smoking Tobacco: Never Assessed Sex and Gender Information Value Date Recorded Sex Assigned at Not on file Gender Identity Not on file Sexual Orientation Not on file documented as of this encounter Plan of Treatment Not on file documented as of this encounter Procedures Procedure Name Priority Date/Time Associated Diagnosis Comments CYTOPATHOLOGY Routine 12/20/2004 0:00 EDT documented in this encounter Results * CYTOPATHOLOGY (12/20/2004 0:00 EDT) Pathology Report: CYTOPATHOLOGY REPORT Reports generated via electronic interface contain original data; however they are lacking the format of the original report. Caution should be taken when reading/interpreti ng unformatted reports. Name: ? LETITIA LEE ? Accession #: ? [id number] : ? 1965 (Age: 39) ??F ?Collect Date: ? 12/20/2004 Location: ? [facility] ? Receive Date: ? 12/22/2004 Provider: ?GABRIEL MATA NP Copy to: ? Specimen/Source: ?ThinPrep Pap Test, Cervix/Endocervix, processed on Digital [employer] ThinPrep Imaging System, with manual evaluation Last Menstrual Period: ? 12/07/04 Previous Gynecologic Pathology: ? Yes: Abnormal pap 3 years, normal since Other: ? HPVA - HPV testing requested if ASC-US on the current ThinPrep Pap test. ? SPECIMEN ADEQUACY ? Satisfactory for Evaluation - transformation zone component present GENERAL CATEGORIZATION ? Negative for Intraepithelial Lesion or Malignancy ? Document reviewed and electronically signed by: ? Laila Aquino, KRISTOPHER(ASCP) ? Report Date: ??12/29/2004 13:56 End of Report [facility] 12/20/2004 12/22/2004 Gabriel Mata NP PATHOLOGY ORDERABLES [facility] [address] [place] [address] documented in this encounter Visit Diagnoses Not on filedocumented in this encounter
--- OUTSIDE RECORDS SUMMARY | 2023-12-04 11:31 | XMS_ITS | Encounter Summary ---
Author Organization [facility] Address [address] [place] [address] Care Team Providers Care Clearing Inspector Name Role Phone Unavailable Primary Care Provider Unavailabl e Encounter Details Date Type Department Care Team (Late st Contact Info) Description 11/24/2010 Results Only [facility] Laboratory Services - [facility] ([facility] [address] [place], [place] [phone] Magnus Linares FNP [address] [place], [place] [phone] Social History Tobacco Use Types Packs/Day Years [...] Diagnosis Comments PAP TEST- RESULT ONLY Routine 11/24/2010 0:00 EDT documented in this encounter Results * PAP TEST- RESULT ONLY (11/24/2010 0:00 EDT) Pathology Report: CYTOPATHOLOGY REPORT ? Reports generated via electronic interface contain original data; ? however they are lacking the format of the original report. ? Caution should be taken when reading/interpreti ng unformatted reports. ? Name: ? LETITIA LEE ? Accession #: ? [id number] ? : ? 1965 (Age: 45) ??F ?Collect Date: ? 11/24/2010 ? Location: ? [facility] ? Receive Date: ? 11/26/2010 ? Provider: ?MAGNUS PRICE ? Copy to: ? Specimen/Source: ?Pap Test, Cervix/Endocervix, ThinPrep Imaging System ? with manual evaluation ? Last Menstrual Period: ? SPECIMEN ADEQUACY ? Satisfactory for Evaluation ? - transformation zone component absent ? GENERAL CATEGORIZATION ? Negative for Intraepithelial Lesion or Malignancy ? Document reviewed and electronically signed by: ? Brian Alfred CT(ASCP) ? Report Date: ??11/30/2010 13:38 ? End of Report ? [facility] 11/24/2010 11/26/2010 Magnus Linares SHOVELER PATHOLOGY ORDERABLES [facility] [address] [place] [address] documented in this encounter Visit Diagnoses Not on filedocumented in this encounter
--- OUTSIDE RECORDS SUMMARY | 2023-12-04 11:31 | XMS_ITS | Encounter Summary ---
Author Organization [facility] Address [address] [place] [address] Care Team Providers Care Computer Education Professor Name Role Phone Unavailable Primary Care Provider Unavailabl e Encounter Details Date Type Department Care Team (Late st Contact Info) Description 07/21/1999 Results Only [facility] - [place] conversion [address] [place] [address] Hannah Isaacs, [address] [place] [address] Social History Tobacco Use Types Packs/Day Years Used Date Smoking Tobacco: Never Assessed Sex and Gender Information Value Date Recorded Sex Assigned at Not on file Gender Identity Not on file Sexual Orientation Not on file documented as of this encounter Plan of Treatment Not on file documented as of this encounter Procedures Procedure Name Priority Date/Time Associated Diagnosis Comments CYTOPATHOLOGY Routine 07/21/1999 11:23 EST documented in this encounter Results * CYTOPATHOLOGY (07/21/1999 11:23 EST) Pathology Report: CYTOPATHOLOGY REPORT Reports generated via electronic interface contain original data; however they are lacking the format of the original report. Caution should be taken when reading/interpreti ng unformatted reports. Name: ? LETITIA LEE ? Accession #: ? [id number] : ? 1965 (Age: 34) ??F ?Collect Date: ? 07/21/1999 Location: ?Receive Date: ? 07/21/1999 Provider: ?HANNAH ISAACS COTTON PICKER OPERATOR Copy to: ?HANNAH ALEXANDEROD COTTON PICKER OPERATOR ? Specimen/Source: ?Loan Auditor ThinPrep Last Menstrual Period: ? GYNECOLOGIC ??CYTOPATHOLOGY ??REPORT Name: LETITIA LEE ? [facility] : 1965 ?? 34Y F ?Client ID: [id number] SS#: [id number] ? Clinician: RHONDA SIMP, HANNAH ?? Location: [facility] ??Copy to: ?? Specimen: ?Loan Auditor ThinPrep ? Source: Cervix/Endocervix ?Collected: 07/20/99 ? Received: 07/21/1999 ?LMP: 05/13/99 ? Hormone Therapy: No ? : Yes ?Radiation Therapy: No ?? Post : No ?Chemotherapy: No ?IUD: No ? Prev Abnormal Pap: No ?? Clinical Hx: ?(Blank villalpando indicate information not provided on requisition) SPECIMEN ADEQUACY: ? Satisfactory For Evaluation ?? GENERAL CATEGORIZATION: ? WITHIN NORMAL LIMITS ? Reviewed And Electronically Signed By: ? Donya Sloan, CT(ASCP) ? Report Date: ?? 07/28/1999 [employer] Archived Tests - Final Diagnosis Text Field: Clinical History : ? Document reviewed and electronically signed by: ? Conversion ? Report Date: ??07/28/1999 00:00 End of Report [facility] 07/21/1999 11:2 3 EST 07/21/1999 11:24 EST Hannah Isaacs COTTON PICKER OPERATOR PATHOLOGY ORDERABLES [facility] [address] [place] [address] documented in this encounter Visit Diagnoses Not on filedocumented in this encounter
--- OUTSIDE RECORDS SUMMARY | 2023-12-04 11:31 | XMS_ITS | Encounter Summary ---
Author Organization [facility] Address [address] [place] [address] Care Team Providers Care Electrical Fitter Name Role Phone Unknown, Provider Primary Care Provider Encounter Details Date Type Department Care Team (Late st Contact Info) Description 01/21/2016 Results Only [facility]- PRISM [phone] Maryann Enriquez, ANCILLARY SERVICES MANAGER [address] [facility] [address] [place] [address] Social History Tobacco Use Types Packs/Day Years [...] Diagnosis Comments PAP TEST- RESULT ONLY Routine 01/21/2016 0:00 EDT documented in this encounter Results * PAP TEST- RESULT ONLY (01/21/2016 0:00 EDT) Pathology Report: CYTOPATHOLOGY REPORT Reports generated via electronic interface contain original data; however they are lacking the format of the original report. Caution should be taken when reading/interpreti ng unformatted reports. Name: ? LETITIA LEE ? Accession #: ? [id number] ? : ? 1965 (Age: 50) ??F ?Collect Date: ? 01/21/2016 ? Location: ? [facility] ? Receive Date: ? 01/25/2016 ? Provider: MARYANN ENRIQUEZ ANCILLARY SERVICES MANAGER Copy to: ? Final Report SPECIMEN ADEQUACY ? Satisfactory for Evaluation - transformation zone component present GENERAL CATEGORIZATION ? Negative for Intraepithelial Lesion or Malignancy INTERPRETATION ? Reactive cellular changes associated with inflammation present (includes repair). Last Menstrual Period: 12/21/2015 Hormonal/Contracep tive status: None Other: Bead Flipper Clinical/Treatment Hx - None Specimen/Source: ??Pap Test, Endocervix, ThinPrep Imaging System with manual evaluation Document reviewed and electronically signed by: ? RADHA BOWMAN MD ? Report ??Date: 01/30/2016 10:47 HPV with Pap Test ? Date Ordered: ? 01/29/2016 ? Status: ?? Signed Out ?Date Complete: ? 02/02/2016 ? By: ??System Interface ? Date Reported: ? 02/02/2016 ? Interpretation RESULT: Negative for HPV. No E6 or E7 mRNA is detected from HPV types 16,18,31,33,35, 39,45,51,52,56,58, 59,66, and 68 by cleaning laborer mediated amplification. Comments Document reviewed and electronically signed by: ? System Interface ? Report date: 02/02/2016 By the signature above, the attending physician certifies that he/she has personally conducted a gross and/or microscopic examination of the described specimens and rendered or confirmed the above diagnosis. End of Report [facility] 01/21/2016 01/25/2016 Maryann Enriquez ANCILLARY SERVICES MANAGER PATHOLOGY ORDERAB LES [facility] [address] [place] [address] documented in this encounter Visit Diagnoses Not on filedocumented in this encounter Care Teams Electrical Fitter Relationship Specialty Start Date End Date Unknown, Provider, PCP - General 03/24/15 documented as of this encounter
[2023-12-04 16:44] LABS: Calculated LDL 128 mg/dL (<100); Cholesterol 197 mg/dL (<200); Ferritin 397 ng/mL (8-252); HDL Cholesterol 44 mg/dL (40-60); Triglyceride 129 mg/dL (<150)
[2023-12-04 18:52] LABS: COMMENT (LAB VIEW ONLY) 31.27 mg/dL; Microalb ug/mg Crea 12.8 ug/mg Cr
[2023-12-04 21:02] LABS: Bilirubin Negative (Negative); Blood Negative (Negative); Clarity Clear (Clear); Glucose Negative (Negative); Ketones Negative (Negative); Leukocyte Esterase Negative (Negative); Nitrite Negative (Negative); Urobilinogen 0.2 mg/dL (Up to 0.2)
== END 2023-12-04 11:24 | disposition home or self-care (01) ==
LOC: NCHCN 11:23
PROVIDERS: PCP Internal Medicine; Visit Provider Nurse Practitioner Family
DX: E78.5 Hyperlipidemia, unspecified (principal); R74.8 Abnormal levels of other serum enzymes; Z86.79 Personal history of other diseases of the circulatory system; R53.83 Other fatigue; N39.3 Stress incontinence (female) (male)
CPT/HCPCS: 80061; 81003; 82043; 82570; 82728

== ENCOUNTER 2025-03-25 01:50 | Outpatient (CLI) | payer BC, SELFPAY ==
[2025-03-25 08:09] LABS: Abs Immature Grans 0.01 10^3/uL (0.0-0.06); HCT 39.4 % (36.0-46.0); HGB 13.3 g/dL (11.2-15.7); Immature Grans % 0.2 %; MCH 30.0 pg (27.0-33.0); MCHC 33.8 % (32.0-36.0); MCV 89 fL (80-95); MPV 10.1 fL (8.0-11.0); Platelet Count 262 10^3/uL (130-400); RBC 4.44 10^6/uL (3.93-5.22); RDW 12.6 % (11.7-14.6); RDW-SD 40.9 fL; WBC 4.84 10^3/uL (4.4-10.8)
[2025-03-25 08:13] LABS: Glucose Negative (Negative)
[2025-03-25 09:25] LABS: Total Iron Binding Capacity 321 ug/dL (250-425)
[2025-03-25 09:26] LABS: ALT 24 U/L (10-49); AST 22 U/L (<34); Albumin 4.4 g/dL (3.4-5.0); Alkaline Phosphatase 78 U/L (46-116); Anion Gap 9.2 mmol/L (3-11); BUN 14 mg/dL (9-23); Bilirubin, Total 0.60 mg/dL (0.2-1.2); CO2 26.8 mmol/L (20.0-31.0); Calcium 9.1 mg/dL (8.3-10.6); Chloride 104 mmol/L (98-107); Ferritin 224 ng/mL (7-271); Glucose 90 mg/dL (74-106); Iron 112 ug/dL (50-170); Potassium 4.4 mmol/L (3.5-5.1); Sodium 140 mmol/L (136-145); Total Protein 7.1 g/dL (5.7-8.2); Transferrin Sat 35 % (15-50)
[2025-03-26 10:22] LABS: Transferrin 261 mg/dL (201-352)
== END 2025-03-25 01:51 | disposition home or self-care (01) ==
LOC: LBO 01:50
PROVIDERS: PCP Nurse Practitioner Family; Visit Provider Nurse Practitioner Family
DX: R79.89 Other specified abnormal findings of blood chemistry (principal); I10 Essential (primary) hypertension
CPT/HCPCS: 36415; 80053; 81003; 82043; 82570; 82728; 83540; 83550; 84466; 85025